=== PATIENT | female | born 1960 | race Caucasian/White ===

== ENCOUNTER 2023-09-20 13:48 | Emergency (ER) | payer MEDICARE ==
[~2023-09-20] VITALS: Ht 152.4 cm; Wt 55.0 kg
[~2023-09-20 13:48] MED LIST: ASPI-1497 PO; BACL-141 PO; CHOL400D7 PO; DOCU250C69 PO; KEPP500 PO; LACT10SO7 PO; OMEG-119 PO; POLY15DR31 EACHEYE; PROP40TA7 PO
[2023-09-20 14:00] VITALS: O2SAT 96
[2023-09-20] MEDS: PIPERACILLIN/TAZO 3.375G/50ML 50 ML IV ONE (15:00)
[2023-09-20 15:01] LABS: BASOPHILS % 0.5 % (0.0-2.0); EOSINOPHILS % 1.5 % (0.0-5.0); HEMATOCRIT. 40.7 % (36.0-48.0); HEMOGLOBIN. 13.6 g/dL (12.0-16.0); LYMPHOCYTES % 39.8 % (20.0-50.0); MEAN CORPUSCULAR HEMOGLOBIN 28.2 pg (28.0-32.0); MEAN CORPUSCULAR HGB CONC 33.3 g/dL (31.0-37.0); MEAN CORPUSCULAR VOLUME 84.5 fL (81.0-99.0); MEAN PLATELET VOLUME 9.7 fl (7.4-10.4); NEUTROPHILS % 50.2 % (40.0-76.0); PLATELET 185 x1000/uL (130-400); RED BLOOD CELL COUNT 4.82 mill/uL (4.2-5.4); RED CELL DISTRIBUTION WIDTH 13.8 % (11.6-14.6); WHITE BLOOD COUNT 5.4 x1000/uL (4.5-11.0)
[2023-09-20] MEDS: SODIUM CHLORIDE 0.9% 1000ML BAG (SEPSIS BOLUS) IV ONE (15:02)
[2023-09-20 15:08] LABS: CHLORIDE 109 mEq/L (98-107); POTASSIUM 3.9 mEq/L (3.5-5.1); SODIUM 143 mEq/L (136-145)
[2023-09-20 15:09] LABS: CARBON DIOXIDE 28 mEq/L (21-32)
[2023-09-20 15:10] LABS: CALCIUM 9.1 mg/dL (8.7-10.4)
[2023-09-20 15:11] LABS: INR 0.9; PROTHROMBIN TIME 10.6 sec (9.6-11.0)
[2023-09-20 15:14] LABS: CREATININE 0.5 mg/dL (0.6-1.0); GLUCOSE 87 mg/dL (70-105); UREA NITROGEN BLOOD 10 mg/dL (9-23)
[2023-09-20] MEDS: VANCOMYCIN 1G PREMIX 200 ML IV ONE (16:07)
[2023-09-20] MEDS ORDERED: CEPH500C2 MT (16:46)
[2023-09-20] MEDS ORDERED: NEOM28.37 TP (16:46)
[2023-09-20] MEDS ORDERED: BACITRACIN ZINC OINT UDPKT TOP ONE (17:15)
[2023-09-20 19:00] VITALS: TEMP 98.1
[2023-09-20 20:00] VITALS: BP 123/50; PULSE 53; RESP 15
== END 2023-09-20 20:08 | disposition home or self-care (01) ==
LOC: ER 13:48
DX: K94.22 Gastrostomy infection (principal); Z79.82 Long term (current) use of aspirin; Z86.59 Personal history of other mental and behavioral disorders
CPT/HCPCS: 99285; 74176; 96365; 71045; 96367; 80048; 83605; 85025; 85610; 87040; 36415; J2543; J3370; J7030